=== PATIENT | male | born 1955 | race Two or more races ===

== ENCOUNTER 2019-07-12 17:19 | Emergency (ER) | payer MEDICAID ==
[~2019-07-12] VITALS: Ht 165.1 cm; Wt 56.8 kg
[~2019-07-12 17:19] MED LIST: ARIP5TAB49; BUPR300T6; CLON1TAB12; ESCI20TA38; FEBU80TA; FENO134C; PER5325T; TRAZ-219
[2019-07-12] MEDS ORDERED: proparacaine 0.5% ophthalmic drops 15ml EACHEYE ONE (17:40)
[2019-07-12 18:11] VITALS: BP 115/77
[2019-07-12] MEDS ORDERED: HYDROcodone/acetaminophen 5mg/325mg tablet PO ONE (18:25)
[2019-07-12] MEDS ORDERED: HYDR-3965 PO (19:09)
[2019-07-12] MEDS ORDERED: TETanus/Pertussis (Acell)/Diphther VAC/PF (Tdap-Adult) 0.5ml syringe IM ONE (19:15)
== END 2019-07-12 20:07 | disposition home or self-care (01) ==
LOC: ER 17:20
DX: S01.511A Laceration without foreign body of lip, initial encounter (principal); S20.211A Contusion of right front wall of thorax, initial encounter; S09.90XA Unspecified injury of head, initial encounter; H05.233 Hemorrhage of bilateral orbit; H11.429 Conjunctival edema, unspecified eye; F41.9 Anxiety disorder, unspecified; K04.7 Periapical abscess without sinus; Z79.899 Other long term (current) drug therapy; Y04.2XXA Assault by strike against or bumped into by another person, initial encounter; Y93.89 Activity, other specified; Y92.89 Other specified places as the place of occurrence of the external cause; Y99.8 Other external cause status
CPT/HCPCS: 70450; 70486; 71045; 72125; 90471; 99284

== ENCOUNTER 2021-09-27 15:00 | Emergency (ER) | payer MEDICAID ==
[~2021-09-27] VITALS: Ht 167.6 cm; Wt 55.5 kg
[~2021-09-27 15:00] MED LIST changes: -ESCI20TA38; +ESCI20TA39; -TRAZ-219; +TRAZ-256
[2021-09-27 15:18] VITALS: BP 137/92
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
[2021-09-27] MEDS ORDERED: ACET325T54 PO (16:43)
== END 2021-09-27 17:04 | disposition home or self-care (01) ==
LOC: EEVIPCON 15:02 → ER 15:02
DX: S09.90XA Unspecified injury of head, initial encounter (principal); R51.9 Headache, unspecified; R42 Dizziness and giddiness; R11.0 Nausea; M10.9 Gout, unspecified; F41.9 Anxiety disorder, unspecified; Z79.899 Other long term (current) drug therapy; Y08.89XA Assault by other specified means, initial encounter; Y93.89 Activity, other specified; Y92.89 Other specified places as the place of occurrence of the external cause; Y99.8 Other external cause status
CPT/HCPCS: 70450; 99284

== ENCOUNTER 2022-10-27 11:12 | Emergency (ER) | payer BC, MEDICAID ==
[~2022-10-27] VITALS: Ht 167.6 cm; Wt 54.5 kg
[~2022-10-27 11:12] MED LIST changes: -FENO134C; +FENO134C21
[2022-10-27 11:52] LABS: BASOPHILS % (AUTO) 0.4 % (0-1); EOSINOPHILS % (AUTO) 0 % (0-6); HEMATOCRIT 39.5 % (42.0-52.0); HEMOGLOBIN 13.9 g/dl (14.0-17.9); LYMPHOCYTES # (AUTO) 0.6 X10'3 (1.1-4.8); LYMPHOCYTES % (AUTO) 6.1 % (21-51); MEAN CORPUSCULAR HEMOGLOBIN 34.3 PG (27.0-31.0); MEAN CORPUSCULAR HGB CONC 35.1 g/dL (33.0-36.5); MEAN CORPUSCULAR VOLUME 97.8 FL (78-98); MEAN PLATELET VOLUME 7.5 FL (7.4-10.4); MONOCYTES # (AUTO) 0.8 X10'3 (0-0.9); MONOCYTES % (AUTO) 7.8 % (2-12); NEUTROPHILS # (AUTO) 9.1 X10'3 (1.8-7.7); NEUTROPHILS % (AUTO) 85.7 % (42-75); PLATELET COUNT 207 X10'3 (140-440); RED BLOOD COUNT 4.04 X10'6 (4.70-6.10); RED CELL DISTRIBUTION WIDTH 13.3 % (11.5-14.5); WHITE BLOOD COUNT 10.7 X10'3 (4.5-11.0)
[2022-10-27 12:02] LABS: APTT 23 SECONDS (22-32)
[2022-10-27 12:05] LABS: ALANINE AMINOTRANSFERASE 57 U/L (12-78); ALBUMIN 4.3 G/DL (3.4-5.0); ALBUMIN/GLOBULIN RATIO 1.2 (1.1-1.5); ALKALINE PHOSPHATASE 61 IU/L (46-116); ANION GAP 16 (8-16); ASPARTATE AMINO TRANSFERASE 99 U/L (10-37); BILIRUBIN,TOTAL 1.1 MG/DL (0.1-1.0); BLOOD UREA NITROGEN 13 MG/DL (7-18); BUN/CREATININE RATIO 14.1 (5.4-32.0); CHLORIDE 100 MMOL/L (99-107); CREATININE 0.92 MG/DL (0.60-1.10); GLUCOSE 113 MG/DL (70-104); POTASSIUM 3.6 MMOL/L (3.5-5.1); SODIUM 139 MMOL/L (135-145); TOTAL CARBON DIOXIDE 22.6 MMOL/L (24-32); TOTAL PROTEIN 7.8 G/DL (6.4-8.2); eGFR 83 ML/MIN
[2022-10-27 14:32] VITALS: BP 168/87
== END 2022-10-27 14:37 | disposition home or self-care (01) ==
LOC: ER 11:12
DX: S09.93XA Unspecified injury of face, initial encounter (principal); S00.12XA Contusion of left eyelid and periocular area, initial encounter; F10.20 Alcohol dependence, uncomplicated; Y90.9 Presence of alcohol in blood, level not specified; W18.30XA Fall on same level, unspecified, initial encounter; Y93.89 Activity, other specified; Y92.89 Other specified places as the place of occurrence of the external cause; Y99.8 Other external cause status
CPT/HCPCS: 36415; 70450; 70486; 80053; 85025; 85610; 85730; 99284

== ENCOUNTER 2023-02-01 01:59 | Emergency (ER) | payer BC, MEDICAID ==
[~2023-02-01] VITALS: Ht 167.6 cm; Wt 61.4 kg
[2023-02-01] MEDS ORDERED: HYDROcodone/acetaminophen 10/325mg tab PO ONE (02:40)
[2023-02-01] MEDS ORDERED: ketorolac trometh. 30mg/ml inj. IV ONE (02:40)
[2023-02-01] MEDS ORDERED: HYDR-3973 PO (04:03)
[2023-02-01 04:10] VITALS: BP 159/87
== END 2023-02-01 04:14 | disposition home or self-care (01) ==
LOC: ER 02:00
DX: S00.03XA Contusion of scalp, initial encounter (principal); S00.83XA Contusion of other part of head, initial encounter; M79.631 Pain in right forearm; M25.511 Pain in right shoulder; W19.XXXA Unspecified fall, initial encounter; Y93.89 Activity, other specified; Y92.89 Other specified places as the place of occurrence of the external cause; Y99.8 Other external cause status
CPT/HCPCS: 71045; 73010; 73090; 96374; 99284; J1885

== ENCOUNTER 2023-02-04 05:54 | Emergency (ER) | payer BC, MEDICAID ==
[~2023-02-04] VITALS: Ht 167.6 cm; Wt 61.4 kg
[~2023-02-04 05:54] MED LIST changes: +HYDR-3973 PO
[2023-02-04] MEDS ORDERED: ketorolac trometh inj. 60 MG/2 ML VIAL IM ONE (07:10)
[2023-02-04] MEDS ORDERED: iohexol 350MG/ML 100ml bottle IV ONE (08:25)
--- NOTE | 2023-02-04 08:52 | NUR ---
RAYMON REQUEST C COLLAR TO BE PLACED. C COLLAR PLACED ON PT.
[2023-02-04] MEDS ORDERED: morphine 4 MG/ML inj SYRINge IV ONE ×2 (11:25)
[2023-02-04] MEDS ORDERED: ketorolac trometh. 30mg/ml inj. IM ONE (11:30)
[2023-02-04 13:39] VITALS: BP 172/94
== END 2023-02-04 16:54 | disposition short-term general hospital (02) ==
LOC: ER 05:55
DX: S05.12XA Contusion of eyeball and orbital tissues, left eye, initial encounter (principal); F41.9 Anxiety disorder, unspecified; Z79.899 Other long term (current) drug therapy; W19.XXXA Unspecified fall, initial encounter; Y93.89 Activity, other specified; Y92.89 Other specified places as the place of occurrence of the external cause; Y99.8 Other external cause status
CPT/HCPCS: 70450; 70498; 71250; 72125; 72141; 96372; 96374; 99285; J1885; J2270; J3490; L0172; Q9967

== ENCOUNTER 2025-04-25 20:23 | Emergency (ER) | payer BC, MEDICAID ==
[~2025-04-25] VITALS: Ht 165.1 cm; Wt 59.1 kg
[~2025-04-25 20:23] MED LIST changes: -BUPR300T6; -HYDR-3973 PO; +[UNRECOGNIZED DRUG - CODE]
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
--- NOTE | 2025-04-25 21:30 | RADIOLOGY REPORT ---
CLINICAL INDICATION: Shoulder Pain TECHNIQUE: 2 radiographic views of the right shoulder were obtained. Comparison: None FINDINGS/IMPRESSION: There is 1.3 x 0.2 cm linear hyperdensity partially overlying the right lateral scapula which may rep resent nonspecific soft tissue calcification versus sequela of injury of unknown chronicity. Recommen d correlation with point tenderness to exclude an acute fracture. No shoulder dislocation. No fracture of the proximal humerus. Mild degenerative changes of the right AC joint. The visualized lungs are clear.
[2025-04-25] MEDS ORDERED: LIDO700A47 TOP (21:47)
[2025-04-25 22:09] VITALS: BP 155/90; PULSE 70; RESP 16; TEMP 98.6; O2SAT 98
== END 2025-04-25 22:10 | disposition home or self-care (01) ==
LOC: ER 20:24
DX: M25.511 Pain in right shoulder (principal); F41.9 Anxiety disorder, unspecified; Z79.899 Other long term (current) drug therapy; Y04.8XXA Assault by other bodily force, initial encounter; Y93.89 Activity, other specified; Y92.89 Other specified places as the place of occurrence of the external cause; Y99.8 Other external cause status
CPT/HCPCS: 73030; 99283